=== PATIENT | female | born 1985 | race Two or more races ===

== ENCOUNTER 2021-11-25 09:30 | Inpatient (IN) | payer OTHER ==
[2021-11-25] MEDS ORDERED: BUTORPHANOL TARTRATE 1 MG/ML VIAL IVPUSH ONE (10:49)
[2021-11-25] MEDS ORDERED: PROMETHAZINE HCL 25 MG/1 ML VIAL IVPUSH ONE (10:49)
[2021-11-25 11:40] VITALS: BMI 30.2
[2021-11-25 11:54] LABS: BASO % 0.2 % (0-2.0); EOS % 0.3 % (0-4.5); HEMATOCRIT 37.9 % (32.4-45.2); HEMOGLOBIN 13.2 GM/dL (10.7-15.3); MCH 30.2 pg (25.7-33.7); MCHC 34.7 g/dl (32.0-36.0); MEAN PLT VOLUME 8.8 fl (7.5-11.1); MONO % 6.1 % (3.8-10.2); NEUT % 78.4 % (42.8-82.8); PLATELET COUNT 204 10^3/uL (134-434); RBC 4.36 M/mm3 (3.60-5.2); RDW 13.8 % (11.6-15.6); WHITE BLOOD COUNT 11.2 K/mm3 (4.0-10.0)
[2021-11-25] MEDS ORDERED: LIDOCAINE HCL 1% PRESERVATIVE FREE - 30ML VIAL ONE (11:59)
[2021-11-25] MEDS ORDERED: OXYTOCIN 20 UNITS in 0.9% NS 20 UNIT/1,000 ML INFUS.BAG IV ONE (11:59)
[2021-11-25 12:08] LABS: BLOOD UREA NITROGEN 6.9 mg/dL (7-18); CALCIUM 8.8 mg/dL (8.5-10.1)
[2021-11-25 12:12] LABS: CREATININE 0.5 mg/dL (0.55-1.3); INR 0.96 (0.83-1.09)
[2021-11-25 12:15] LABS: ACTIVATED PTT 30.4 SECONDS (25.2-36.5)
[2021-11-25] MEDS ORDERED: OXYTOCIN 30 UNITS in 0.9% NS 30 UNIT/500 ML INFUS.BAG IVPB ONE (12:34)
[2021-11-25] MEDS ORDERED: IBUPROFEN 600 MG TABLET (FP) PO ONE (13:05)
[2021-11-25] MEDS: IBUPROFEN 600 MG TABLET (FP) PO PRN ×2 (13:10→20:51)
[2021-11-25] MEDS ORDERED: BENZOCAINE 20% 57 GM BOTTLE TP PRN (13:16)
[2021-11-25] MEDS ORDERED: BENZOCAINE 28 GM HEMORRHOIDAL OINTMENT TP PRN (13:16)
[2021-11-25] MEDS ORDERED: WITCH HAZEL 50% (TUCKS) 40 PAD/JAR PAD TP PRN (13:16)
[2021-11-25] MEDS ORDERED: METHYLERGONOVINE MALEATE 0.2 MG/1 ML AMP IM PRN (13:16)
[2021-11-25] MEDS ORDERED: oxyCODONE HCL 5 MG TABLET PO PRN (13:16)
[2021-11-25] MEDS ORDERED: BISACODYL 10 MG SUPP.RECT RC PRN (13:16)
[2021-11-25] MEDS ORDERED: ACETAMINOPHEN 325 MG TABLET (FP) PO PRN (13:16)
[2021-11-25] MEDS ORDERED: OXYTOCIN 20 UNITS in 0.9% NS 20 UNIT/1,000 ML INFUS.BAG IV SCH (13:30)
[2021-11-25 13:57] LABS: CORD BASE EXCESS -1.7 mmol/L (0-2); CORD HCO3 25.4 mmHg (20-29); CORD pH 7.307 (7.14-7.44)
[2021-11-25 13:59] LABS: CORD BASE EXCESS -0.3 mmol/L (0-2); CORD HCO3 24.9 mmHg (20-29); CORD PCO2 42.5 mmHg (30-78); CORD pH 7.385 (7.14-7.44)
[2021-11-25] MEDS: DEXTROSE 5%-LACTATED RINGERS 1,000 ML IV SCH (16:35)
[2021-11-26 08:13] LABS: BASO % 0.4 % (0-2.0); EOS % 0.6 % (0-4.5); HEMATOCRIT 36.6 % (32.4-45.2); HEMOGLOBIN 12.2 GM/dL (10.7-15.3); LYMPH % 18.2 % (8-40); MCH 29.2 pg (25.7-33.7); MCHC 33.4 g/dl (32.0-36.0); MEAN CELL VOLUME 87.4 fl (80-96); MEAN PLT VOLUME 9.1 fl (7.5-11.1); MONO % 5.9 % (3.8-10.2); NEUT % 74.9 % (42.8-82.8); PLATELET COUNT 205 10^3/uL (134-434); RBC 4.19 M/mm3 (3.60-5.2); RDW 13.8 % (11.6-15.6)
[2021-11-26] MEDS ORDERED: DIPHTH,PERTUSS(ACELL),TET 0.5 ML DISP.SYRIN IM ONE (10:00)
[2021-11-26] MEDS: DEXTROSE 5%-LACTATED RINGERS 1,000 ML IV SCH (19:11)
[2021-11-26] MEDS: IBUPROFEN 600 MG TABLET (FP) PO PRN (19:23)
[2021-11-26] MEDS ORDERED: SENNOSIDES/DOCUSATE COMBO (SENNA PLUS) TABLET (UD) PO PRN (22:00)
[2021-11-27] MEDS: IBUPROFEN 600 MG TABLET (FP) PO PRN (08:16)
[2021-11-27 10:12] VITALS: BP 100/47; PULSE 60; RESP 18; TEMP 98.7
== END 2021-11-27 15:50 | disposition home or self-care (01) | DRG 560 ==
LOC: JDEL 09:30 → JLDR 10:20 → J3W 14:45
PROVIDERS: ADMIT Obstetrics & Gynecology; ATTEND Obstetrics & Gynecology
PROC: 10E0XZZ Delivery of Products of Conception, External Approach (ICD-10-PCS; principal; 2021-11-25)
PROC: 0HQ9XZZ Repair Perineum Skin, External Approach (ICD-10-PCS; 2021-11-25)
DX: O34.13 Maternal care for benign tumor of corpus uteri, third trimester (principal); D25.1 Intramural leiomyoma of uterus; O70.0 First degree perineal laceration during delivery; Z3A.37 37 weeks gestation of pregnancy; Z37.0 Single live birth; Z86.19 Personal history of other infectious and parasitic diseases
CPT/HCPCS: 36415; 36600; 59409; 71046-TC-FY; 80048; 82803; 85025; 85610; 85730; 86780; 86850; 86900; 86901; 90715; C9803-CS; U0003; U0005